=== PATIENT | female | born 2000 ===

== ENCOUNTER 2022-05-05 15:20 | Outpatient (CLI) | payer OTHER | END 2022-05-05 15:59 | disposition home or self-care (01) | LOC: PRENATAL 15:20 | PROVIDERS: ATTEND Obstetrics & Gynecology Maternal & Fetal Medicine | DX: O35.9XX0 Maternal care for (suspected) fetal abnormality and damage, unspecified, not applicable or unspecified (principal); O35.3XX0 Maternal care for (suspected) damage to fetus from viral disease in mother, not applicable or unspecified; Z3A.20 20 weeks gestation of pregnancy ==

== ENCOUNTER 2022-06-15 09:41 | Emergency (ER) | payer OTHER ==
[~2022-06-15] VITALS: Ht 152.4 cm; Wt 77.1 kg
== END 2022-06-15 12:42 | disposition home or self-care (01) ==
LOC: ER 09:41
DX: O98.512 Other viral diseases complicating pregnancy, second trimester (principal); U07.1 COVID-19; Z3A.26 26 weeks gestation of pregnancy

== ENCOUNTER 2022-08-24 07:06 | Inpatient (IN) | payer OTHER ==
[~2022-08-24] VITALS: Ht 152.4 cm; Wt 81.6 kg
[2022-08-24] MEDS ORDERED: PRENATAL TABLE1 EAC1 PO (07:30)
== END 2022-08-26 12:08 | disposition home or self-care (01) | DRG 807 ==
LOC: OBS/DEL 07:06 → OB/GYN 08:17 → LDR 08:17 → OB/GYN 16:32
PROVIDERS: ADMIT Obstetrics & Gynecology; ATTEND Obstetrics & Gynecology
PROC: 10E0XZZ Delivery of Products of Conception, External Approach (ICD-10-PCS; principal; 2022-08-24)
PROC: 4A1HXCZ Monitoring of Products of Conception, Cardiac Rate, External Approach (ICD-10-PCS; 2022-08-24)
DX: O42.013 Preterm premature rupture of membranes, onset of labor within 24 hours of rupture, third trimester (principal); Z37.0 Single live birth; Z3A.35 35 weeks gestation of pregnancy; Z20.822 Contact with and (suspected) exposure to COVID-19